=== PATIENT | female | born 1985 | race American Indian/Alaskan Native ===

== ENCOUNTER 2017-02-01 22:34 | Emergency (ER) | payer OTHER ==
[2017-02-01 23:35] VITALS: BP 181/115
== END 2017-02-02 04:22 | disposition left against medical advice (07) ==
LOC: ED 22:34
DX: R20.0 Anesthesia of skin (principal); I10 Essential (primary) hypertension; Z53.21 Procedure and treatment not carried out due to patient leaving prior to being seen by health care provider

== ENCOUNTER 2017-08-10 18:24 | Emergency (ER) | payer OTHER ==
[2017-08-10 18:56] VITALS: BP 154/103
== END 2017-08-11 00:39 | disposition left against medical advice (07) ==
LOC: ED 18:24
DX: R19.7 Diarrhea, unspecified (principal); Z53.21 Procedure and treatment not carried out due to patient leaving prior to being seen by health care provider